=== PATIENT | male | born 1985 | race Caucasian/White ===

== ENCOUNTER 2018-04-28 00:14 | Emergency (ER) | payer MEDICAID ==
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
[2018-04-28] MEDS ORDERED: LET GEL TOPICAL 1 EA SYR TP ONE ×2 (00:37→00:38)
[2018-04-28] MEDS ORDERED: IBUPROFEN 800 MG TAB PO ONE (00:40)
[2018-04-28 01:23] VITALS: BP 128/77
== END 2018-04-28 01:40 | disposition home or self-care (01) ==
DX: S92.342A Displaced fracture of fourth metatarsal bone, left foot, initial encounter for closed fracture (principal); S93.125A Dislocation of metatarsophalangeal joint of left lesser toe(s), initial encounter; S93.602A Unspecified sprain of left foot, initial encounter; V86.59XA Driver of other special all-terrain or other off-road motor vehicle injured in nontraffic accident, initial encounter; Y92.410 Unspecified street and highway as the place of occurrence of the external cause; Y99.8 Other external cause status; Y93.55 Activity, bike riding
CPT/HCPCS: L4386

== ENCOUNTER 2018-04-29 16:26 | Emergency (ER) | payer MEDICAID ==
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
[2018-04-29 17:59] VITALS: BP 110/82
== END 2018-04-29 18:00 | disposition home or self-care (01) ==
DX: S92.345D Nondisplaced fracture of fourth metatarsal bone, left foot, subsequent encounter for fracture with routine healing (principal); V86.59XA Driver of other special all-terrain or other off-road motor vehicle injured in nontraffic accident, initial encounter; Y92.89 Other specified places as the place of occurrence of the external cause; Y99.8 Other external cause status; Y93.55 Activity, bike riding
CPT/HCPCS: L4386